=== PATIENT | male | born 1965 | race Caucasian/White ===

== ENCOUNTER 2017-06-18 19:33 | Emergency (ER) | payer OTHER ==
[~2017-06-18] VITALS: Ht 175.3 cm; Wt 99.8 kg
[~2017-06-18 19:33] MED LIST: TOUJEO SOL300 UNIT/1
[2017-06-18] MEDS ORDERED: MUCINEX1200 MG PO (21:17)
[2017-06-18] MEDS ORDERED: OSEL75CA PO (21:17)
== END 2017-06-18 21:53 | disposition home or self-care (01) ==
LOC: ER 19:33
DX: J11.1 Influenza due to unidentified influenza virus with other respiratory manifestations (principal); R50.9 Fever, unspecified

== ENCOUNTER → 2018-01-20 | Emergency (ER) | payer OTHER ==
[~2018-01-20] VITALS: Ht 175.3 cm; Wt 105.2 kg
[~2018-01-20] MED LIST changes: +JARDIANCE10 MG; +MUCINEX1200 MG PO; +OSEL75CA PO
== END | disposition left against medical advice (07) ==
LOC: ER 12:52
DX: Z53.20 Procedure and treatment not carried out because of patient's decision for unspecified reasons (principal)

== ENCOUNTER 2019-05-01 14:22 | Emergency (ER) | payer OTHER ==
[~2019-05-01] VITALS: Ht 175.3 cm; Wt 104.3 kg
[2019-05-01] MEDS ORDERED: JARDIANCE25 MG (14:43)
[2019-05-01] MEDS ORDERED: KETO10TA2 PO (19:26)
[2019-05-01] MEDS ORDERED: NORFLEX100MG PO (19:26)
== END 2019-05-01 19:34 | disposition home or self-care (01) ==
LOC: ER 14:22
DX: G44.209 Tension-type headache, unspecified, not intractable (principal)

== ENCOUNTER 2019-07-24 12:42 | Emergency (ER) | payer OTHER ==
[~2019-07-24] VITALS: Ht 175.3 cm; Wt 102.1 kg
[~2019-07-24 12:42] MED LIST changes: +JARDIANCE25 MG; +KETO10TA2 PO; +NORFLEX100MG PO
[2019-07-24] MEDS ORDERED: JARDIANCE25 MG PO (13:07)
[2019-07-24] MEDS ORDERED: TOUJEO SOL300 UNIT/1 SUBCUTANEO (13:08)
== END 2019-07-24 15:56 | disposition home or self-care (01) ==
LOC: ER 12:42
DX: R51 Headache (principal); R42 Dizziness and giddiness

== ENCOUNTER 2020-05-04 13:25 | Emergency (ER) | payer OTHER ==
[~2020-05-04] VITALS: Ht 175.3 cm; Wt 104.3 kg
[~2020-05-04 13:25] MED LIST changes: +JARDIANCE25 MG PO; +TOUJEO SOL300 UNIT/1 SUBCUTANEO
[2020-05-04] MEDS ORDERED: ACETAMINOPHEN500 M1 PO (17:27)
== END 2020-05-04 18:04 | disposition home or self-care (01) ==
LOC: ER 13:25
DX: G44.201 Tension-type headache, unspecified, intractable (principal); D69.49 Other primary thrombocytopenia; Z03.818 Encounter for observation for suspected exposure to other biological agents ruled out

== ENCOUNTER 2024-11-25 08:42 | Emergency (ER) | payer OTHER ==
[~2024-11-25] VITALS: Ht 175.3 cm; Wt 99.3 kg
[~2024-11-25 08:42] MED LIST changes: +ACETAMINOPHEN500 M1 PO
[2024-11-25] MEDS ORDERED: ARBLI10 MG/1 ML (09:08)
[2024-11-25] MEDS ORDERED: GLIMEPIRIDE4 M1 (09:09)
[2024-11-25] MEDS ORDERED: EZALLOR SPRINKL20 MG (09:09)
[2024-11-25] MEDS ORDERED: GUAIFEN/DEXTROMETHORPHAN/PE 10 ML BLIST.PACK PO ONE (09:43)
[2024-11-25] MEDS ORDERED: GUAIFENESIN/DEXTROMETHORPHAN 100MG/10ML BLIST.PACK PO ONE (09:45)
[2024-11-25] MEDS ORDERED: IPRATROPIUM/ALBUTEROL SULFATE 3 ML AMPUL.NEB IH SCH (09:45)
[2024-11-25 10:20] LABS: BASO % 0.7 % (0.1-1.2); EOS # 0.09 (0.04-0.54); HEMATOCRIT 42.6 % (40.1-51.0); HEMOGLOBIN 14.9 g/dL (13.7-17.5); LYMPH # 0.71 (1.18-3.74); LYMPH % 15.5 % (19.3-53.1); MEAN CORPUSCULAR HEMOGLOBIN 30.8 pg (25.6-32.2); MONO # 0.48 (0.24-0.82); MONO % 10.5 % (4.7-12.5); NEUT # 3.27 (1.56-6.13); NEUT % 71.1 % (34.0-71.1); PLATELET COUNT 107 K/uL (163-369); RED BLOOD COUNT 4.84 M/uL (4.63-6.08); RED CELL DISTRIBUTION WIDTH 12.1 % (11.6-14.4)
[2024-11-25] MEDS ORDERED: IPRATROPIUM/ALBUTEROL SULFATE 3 ML AMPUL.NEB IH ONE (10:57)
[2024-11-25 11:01] LABS: ALBUMIN 4.1 gm/dL (3.4-5.0); BILIRUBIN TOTAL 0.88 mg/dL (0.3-1.2); CALCIUM 9.7 mg/dL (8.5-10.1); CREATININE SERUM 0.83 mg/dL (0.70-1.30); GFR 94.83; GLOBULINA 4.2 G/DL (2.4-3.5); POTASSIUM 4.1 mEq/L (3.5-5.1); TOTAL PROTEIN 8.3 gm/dL (6.4-8.2)
[2024-11-25 11:34] LABS: COVID-19 AG NEGATIVE (NEGATIVE); INFLUENZA A AG NEGATIVE (NEGATIVE); INFLUENZA B AG NEGATIVE (NEGATIVE)
[2024-11-25] MEDS ORDERED: AZITHROMYCIN 500 MG TABLET PO ONE ×2 (13:30→13:53)
[2024-11-25] MEDS ORDERED: INSULIN REGULAR, HUMAN 1,000 UNIT/10 ML UNITS SUBCUTANEO ONE (13:30)
== END 2024-11-25 14:08 | disposition home or self-care (01) ==
LOC: ER 08:42
PROVIDERS: Emergency Medicine
DX: J45.901 Unspecified asthma with (acute) exacerbation (principal); Z20.822 Contact with and (suspected) exposure to COVID-19; E11.65 Type 2 diabetes mellitus with hyperglycemia; Z79.4 Long term (current) use of insulin; Z79.84 Long term (current) use of oral hypoglycemic drugs